=== PATIENT | male | born 1960 | race African-American/Black ===

== ENCOUNTER 2018-03-20 04:41 | Emergency (ER) | payer MEDICAID, OTHER ==
[~2018-03-20 04:41] MED LIST: ALBU17I INH; ATOR40TA49 PO; BUSP5 PO; FLUT1SPR9; GABA300C3 PO; LISI-363 PO; PRIL40CA PO; ROBA750T3 PO; SERO50TA4 PO; ZITH250T PO
[2018-03-20 04:47] VITALS: BP 103/62; PULSE 85; RESP 16; TEMP 98.5; O2SAT 97
[2018-03-20] MEDS ORDERED: HYDR12.57 PO ×2 (04:57)
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
[2018-03-20] MEDS ORDERED: TAMS0.4C4 PO (05:00)
[2018-03-20] MEDS ORDERED: METH750T PO (05:00)
[2018-03-20] MEDS ORDERED: GABA300C5 PO (05:00)
[2018-03-20] MEDS ORDERED: RANI150T PO (05:00)
[2018-03-20] MEDS ORDERED: LISI-515 PO (05:00)
[2018-03-20] MEDS ORDERED: ATOR40TA16 PO (05:00)
--- NOTE | 2018-03-20 05:27 | RADRPT ---
EXAM DATE: 03/20/2018 5:20 AM EDT AGE/SEX: 57 years / Male INDICATIONS: Trauma; fall. Large hematoma on back left side of head. CLINICAL DATA: This is the patient's initial encounter. Patient reports that signs and symptoms have been present for 1 day and indicates a pain score of Nonresponsive. MEDICAL/SURGICAL HISTORY: Hypertension. Seizures None. RADIATION DOSE: 56.35 CTDI (mGy) COMPARISON: No prior [facility] exams available for comparison. TECHNIQUE: CT of the head without contrast. Using automated exposure control and adjustment of the mA and/or kV according to patient size, radiation dose was kept as low as reasonably achievable to ob tain optimal diagnostic quality images. FINDINGS: Cerebrum: The ventricles are normal for age. No evidence of midline shift, mass lesion, hemorrhage or acute infarction. No extraaxial fluid collections are seen. Posterior Fossa: The cerebellum and brainstem are intact. The 4th ventricle is midline. The cerebe llopontine angle is unremarkable. Extracranial: The visualized portion of the orbits is intact. Left parietal scalp hematoma. Skull: The calvaria is intact. No evidence of skull fracture. CONCLUSION: No bleed or other acute intracranial abnormality. There is a left parietal scalp contusio n/hematoma. Electronically signed by: Jono Kaminski MD 03/20/2018 5:26 AM EDT
--- NOTE | 2018-03-20 05:30 | RADRPT ---
EXAM DATE: 03/20/2018 5:22 AM EDT AGE/SEX: 57 years / Male INDICATIONS: Trauma; fall. CLINICAL DATA: This is the patient's initial encounter. Patient reports that signs and symptoms have been present for 1 day and indicates a pain score of Nonresponsive. MEDICAL/SURGICAL HISTORY: Hypertension. Seizures None. RADIATION DOSE: 21.34 CTDI (mGy) COMPARISON: No prior [facility] exams available for comparison. TECHNIQUE: Contiguous axial images were obtained using helical multirow detector technique. The vol umetric data was post-processed with multiplanar reconstruction in oblique axial, sagittal, and coron al planes. Using automated exposure control and adjustment of the mA and/or kV according to patient s ize, radiation dose was kept as low as reasonably achievable to obtain optimal diagnostic quality carlos ges. FINDINGS: There is no fracture or subluxation of the cervical spine. Vertebral bodies have normal height. There is multilevel disc space narrowing, moderate at C6/C7 and mild at C4/C5 and C5/C6. Each of thes e 3 levels have mild posterior osseous ridging and mild bilateral uncovertebral and facet osteoarthri tis. There is mild bilateral foraminal encroachment at C5/C6 and C6/C7. Perivertebral soft tissues are within normal limits. CONCLUSION: 1. Intact cervical spine. 2. Degenerative changes as above. Electronically signed by: Jono Kaminski MD 03/20/2018 5:29 AM EDT
[2018-03-20] MEDS ORDERED: ZOFR4TAB3 SL (05:50)
[2018-03-20] MEDS ORDERED: CODE30TA2 PO (05:50)
== END 2018-03-20 06:37 | disposition home or self-care (01) ==
LOC: NEPC 04:41
DX: S06.0X0A Concussion without loss of consciousness, initial encounter (principal); S16.1XXA Strain of muscle, fascia and tendon at neck level, initial encounter; E78.00 Pure hypercholesterolemia, unspecified; I10 Essential (primary) hypertension; W19.XXXA Unspecified fall, initial encounter; Y92.002 Bathroom of unspecified non-institutional (private) residence as the place of occurrence of the external cause; Z72.0 Tobacco use
CPT/HCPCS: 70450; 72125; 99283